=== PATIENT | female | born 1990 | race Caucasian/White ===

== ENCOUNTER 2018-09-01 20:02 | Inpatient (IN) | payer OTHER ==
[2018-09-01 20:59] LABS: ALBUMIN/GLOBULIN RATIO 0.94; ANION GAP 9 (5-13); BILIRUBIN,TOTAL 0.6 mg/dl (0.2-1.3); Estimated GFR > 60 mL/min (>60)
[2018-09-01 21:00] LABS: ALANINE AMINOTRANSFERASE 102 IU/L (13-69); ALBUMIN 3.6 g/dl (3.3-4.9); ALKALINE PHOSPHATASE 218 IU/L (42-121); ASPARTATE AMINO TRANSFERASE 68 IU/L (15-46); BILIRUBIN,INDIRECT 0.6 mg/dl (0-1.1); BLOOD UREA NITROGEN 12 mg/dl (7-20); CALCIUM 9.4 mg/dl (8.4-10.2); CARBON DIOXIDE 21 mmol/L (21-31); CHLORIDE 107 mmol/L (97-110); CREATININE 0.62 mg/dl (0.44-1.00); GLUCOSE 92 mg/dl (70-220); POTASSIUM 4.2 mmol/L (3.5-5.1); SODIUM 137 mmol/L (135-144); TOTAL PROTEIN 7.4 g/dl (6.1-8.1)
[2018-09-01] MEDS ORDERED: OXYTOCIN 30 UNITS/LR 500 ML IV ×3 (23:00)
[2018-09-01] MEDS ORDERED: BUTORPHANOL 2 MG INJ IV (23:00)
[2018-09-01] MEDS ORDERED: LIDOCAINE 1% (MPF) 30 ML INJ INJ (23:00)
[2018-09-01] MEDS: LACTATED RINGER'S 1,000 ML IV (23:28)
[2018-09-01 23:38] LABS: ADD MAN DIFF? NO
[2018-09-01 23:41] LABS: WHITE BLOOD COUNT 8.2 10^3/ul (4.8-10.8)
[2018-09-01 23:41] LABS: BASOPHILS % 0.4 % (0.0-2.0); EOSINOPHILS # 0.1 10^3/ul (0.0-0.5); EOSINOPHILS % 1.3 % (0.0-7.0); HEMATOCRIT 34.7 % (37.0-47.0); HEMOGLOBIN 11.9 g/dl (12.0-16.0); LYMPHOCYTES # 2.5 10^3/ul (0.8-2.9); LYMPHOCYTES % 30.3 % (15.0-51.0); MEAN CORPUSCULAR HEMOGLOBIN 30.2 pg (29.0-33.0); MEAN CORPUSCULAR HGB CONC 34.3 g/dl (32.0-37.0); MEAN CORPUSCULAR VOLUME 88.1 fl (82.0-101.0); MONOCYTE # 0.5 10^3/ul (0.3-0.9); MONOCYTES % 6.2 % (0.0-11.0); NEUTROPHIL # 5.1 10^3/ul (1.6-7.5); NEUTROPHILS % 61.4 % (39.0-77.0); PLATELET COUNT 229 10^3/UL (140-415); RED BLOOD COUNT 3.94 10^6/ul (4.20-5.40); RED CELL DISTRIBUTION WIDTH 12.4 % (11.5-14.5)
[2018-09-02 00:01] LABS: INR 0.86; PARTIAL THROMBOPLASTIN TIME 30.2 Sec (23.0-35.0); PROTIME 11.8 Sec (11.9-14.9); PT RATIO 0.9
[2018-09-02 00:31] LABS: HEPATITIS B SURFACE ANTIGEN NEGATIVE (NEGATIVE)
[2018-09-02 00:33] LABS: ADD UMIC NO; UR ASCORBIC ACID NEGATIVE (NEGATIVE); UR BACTERIA FEW /HPF (NONE SEEN); UR BILIRUBIN (Dip) NEGATIVE (NEGATIVE); UR BLOOD (Dip) NEGATIVE (NEGATIVE); UR CALCIUM OXALATE CRYSTAL FEW /HPF (NONE SEEN); UR CLARITY SLIGHTLY CLOUDY (CLEAR); UR COLOR AMBER (YELLOW); UR GLUCOSE (Dip) NEGATIVE (NEGATIVE); UR KETONES (Dip) NEGATIVE (NEGATIVE); UR LEUKOCYTE ESTERASE (Dip) NEGATIVE Leu/ul (NEGATIVE); UR MUCUS FEW /HPF (NONE SEEN); UR NITRITE (Dip) NEGATIVE (NEGATIVE); UR RBC 1 /HPF (0-5); UR SPECIFIC GRAVITY (Dip) 1.027 (1.003-1.030); UR SQUAMOUS EPITHELIAL CELL MODERATE /HPF (FEW); UR TOTAL PROTEIN (Dip) NEGATIVE (NEGATIVE); UR UROBILINOGEN (Dip) 2+ mg/dL (NEGATIVE); UR WBC 1 /HPF (0-5)
[2018-09-02] MEDS: LACTATED RINGER'S 1,000 ML IV ×3 (02:51→18:23)
[2018-09-02] MEDS: MISOPROSTOL 50 MCG CAPSULE PO ×4 (03:07→22:24)
[2018-09-02 16:08] LABS: RAPID PLASMA REAGIN NONREACTIVE (NR)
[2018-09-03] MEDS: MISOPROSTOL 50 MCG CAPSULE PO ×4 (02:35→13:00)
[2018-09-03] MEDS: LACTATED RINGER'S 1,000 ML IV ×3 (04:38→12:27)
[2018-09-03] MEDS: OXYTOCIN 30 UNITS/LR 500 ML IV (12:29)
[2018-09-03] MEDS ORDERED: FENTAnyl 2MCG/ML-ROPIV 0.2% 100 ML (13:07)
[2018-09-03] MEDS ORDERED: NALOXONE (0.4 MG/ML) INJ IV (14:00)
[2018-09-03] MEDS ORDERED: NALBUPHINE HCL (10 MG/1 ML) INJ IV (14:00)
[2018-09-03] MEDS: FENTAnyl 2MCG/ML-ROPIV 0.2% 100 ML BAG EPI (14:10)
[2018-09-03] MEDS: DIPHENHYDRAMINE 50 MG INJ IV (18:49)
[2018-09-03] MEDS: MISOPROSTOL 200 MCG TAB PR (21:04)
[2018-09-03] MEDS: CARBOPROST 250 MCG INJ IM (21:04)
[2018-09-03] MEDS ORDERED: CEFAZOLIN 2 GM/50 ML (PMX) 50 ML IVPB (21:09)
[2018-09-03] MEDS: METHYLERGONOVINE 0.2 MG INJ IM (21:10)
[2018-09-03] MEDS: CEFAZOLIN 2 GM/50 ML (PMX) 50 ML IVPB (21:28)
[2018-09-03] MEDS: IBUPROFEN 600 MG TAB PO (21:50)
[2018-09-03] MEDS: ONDANSETRON 4 MG INJ IV (21:50)
[2018-09-03] MEDS: LACTATED RINGER'S 1,000 ML IV* (22:58)
[2018-09-03] MEDS ORDERED: DIBUCAINE 1% 30 GM OINT TOP (23:00)
[2018-09-03] MEDS ORDERED: OXYTOCIN 30 UNITS/LR 500 ML IV (23:00)
[2018-09-03] MEDS ORDERED: METHYLERGONOVINE 0.2 MG INJ IM (23:00)
[2018-09-03] MEDS ORDERED: CARBOPROST 250 MCG INJ IM (23:00)
[2018-09-03] MEDS ORDERED: ACETAMINOPHEN 325 MG TAB PO (23:00)
[2018-09-03] MEDS ORDERED: MISOPROSTOL 200 MCG TAB PR (23:00)
[2018-09-03] MEDS ORDERED: HYDROCODONE/APAP (5/325) TAB PO (23:00)
[2018-09-04] MEDS: IBUPROFEN 600 MG TAB PO ×5 (05:19→23:41)
[2018-09-04] MEDS: WITCH HAZEL/GLYCERIN PAD PR (05:19)
[2018-09-04] MEDS: BENZOCAINE 20% 56 ML SPRAY TOP (05:19)
[2018-09-04 07:46] LABS: ADD MAN DIFF? NO
[2018-09-04 07:56] LABS: WHITE BLOOD COUNT 17.5 10^3/ul (4.8-10.8)
[2018-09-04 07:56] LABS: BASOPHILS % 0.2 % (0.0-2.0); EOSINOPHILS % 0.2 % (0.0-7.0); HEMATOCRIT 35.7 % (37.0-47.0); HEMOGLOBIN 12.1 g/dl (12.0-16.0); LYMPHOCYTES # 1.9 10^3/ul (0.8-2.9); LYMPHOCYTES % 10.9 % (15.0-51.0); MEAN CORPUSCULAR HGB CONC 33.9 g/dl (32.0-37.0); MEAN CORPUSCULAR VOLUME 88.6 fl (82.0-101.0); MEAN PLATELET VOLUME 9.3 fl (7.4-10.4); MONOCYTES % 5.7 % (0.0-11.0); NEUTROPHIL # 14.4 10^3/ul (1.6-7.5); NEUTROPHILS % 82.5 % (39.0-77.0); PLATELET COUNT 202 10^3/UL (140-415); RED BLOOD COUNT 4.03 10^6/ul (4.20-5.40); RED CELL DISTRIBUTION WIDTH 12.2 % (11.5-14.5)
[2018-09-04] MEDS: SENNA/DOCUSATE NA (8.6MG/50MG) TAB PO ×2 (08:39→21:38)
[2018-09-05] MEDS: IBUPROFEN 600 MG TAB PO ×3 (05:47→18:06)
[2018-09-05 07:11] LABS: ADD MAN DIFF? NO
[2018-09-05 07:13] LABS: WHITE BLOOD COUNT 10.5 10^3/ul (4.8-10.8)
[2018-09-05 07:13] LABS: BASOPHILS % 0.3 % (0.0-2.0); EOSINOPHILS # 0.2 10^3/ul (0.0-0.5); HEMATOCRIT 33.9 % (37.0-47.0); HEMOGLOBIN 11.2 g/dl (12.0-16.0); LYMPHOCYTES # 3.3 10^3/ul (0.8-2.9); LYMPHOCYTES % 31.8 % (15.0-51.0); MEAN CORPUSCULAR HEMOGLOBIN 30.2 pg (29.0-33.0); MEAN CORPUSCULAR VOLUME 91.4 fl (82.0-101.0); MEAN PLATELET VOLUME 9.4 fl (7.4-10.4); MONOCYTE # 0.6 10^3/ul (0.3-0.9); MONOCYTES % 6.1 % (0.0-11.0); NEUTROPHIL # 6.2 10^3/ul (1.6-7.5); NEUTROPHILS % 59.4 % (39.0-77.0); PLATELET COUNT 206 10^3/UL (140-415); RED BLOOD COUNT 3.71 10^6/ul (4.20-5.40); RED CELL DISTRIBUTION WIDTH 12.6 % (11.5-14.5)
[2018-09-05] MEDS: SENNA/DOCUSATE NA (8.6MG/50MG) TAB PO (08:22)
[2018-09-05] MEDS: DIPHTH/TET/ACEL PERTUSS (ADULT) 0.5 ML VIAL IM* (09:00)
== END 2018-09-05 20:15 | disposition home or self-care (01) | DRG 796 ==
LOC: OBT 20:02 → PP1 09-03 22:57 → L-D 20:02 → OBT 22:37 → L-D 22:37
PROC: 10E0XZZ Delivery of Products of Conception, External Approach (ICD-10-PCS; principal; 2018-09-03)
PROC: 10D17ZZ Extraction of Products of Conception, Retained, Via Natural or Artificial Opening (ICD-10-PCS; 2018-09-03)
DX: O26.62 Liver and biliary tract disorders in childbirth (principal); K83.1 Obstruction of bile duct; Z37.0 Single live birth; O62.2 Other uterine inertia; O69.81X0 Labor and delivery complicated by cord around neck, without compression, not applicable or unspecified; Z3A.37 37 weeks gestation of pregnancy
CPT/HCPCS: 62322; 76818; 80053; 81001; 81003; 85025; 85610; 85730; 86592; 86850; 86900; 86901; 87340